=== PATIENT | female | born 1955 | race African-American/Black ===

== ENCOUNTER → 2022-01-13 11:02 | Outpatient (CLI) | payer MEDICARE, SELFPAY ==
--- NOTE | ~2022-01-13 | XR_ITS ---
EXAMINATION: XR shoulder RT min 2V INDICATION: Right shoulder pain TECHNIQUE: Four views of the right shoulder are submitted. COMPARISON: None FINDINGS: Normal alignment. No fracture. There is mild osteoarthritis of the acromioclavicular joint. Soft tissues are unremarkable. IMPRESSION: 1. Mild osteoarthritis. Reviewed, dictated and finalized at location B. IMPRESSION: 1. Mild osteoarthritis.
--- NOTE | ~2022-01-13 | XR_ITS ---
EXAMINATION: XR shoulder LT min 2V INDICATION: Left shoulder pain TECHNIQUE: Four views of the left shoulder are submitted. COMPARISON: None FINDINGS: Normal alignment. No fracture. There is mild osteoarthritis of the glenohumeral and acromio clavicular joints. Soft tissues are unremarkable. IMPRESSION: 1. Mild osteoarthritis. Reviewed, dictated and finalized at location B. IMPRESSION: 1. Mild osteoarthritis.
== END ==
PROVIDERS: PCP Family Medicine; Visit Provider Family Medicine
DX: M19.011 Primary osteoarthritis, right shoulder (principal); M19.012 Primary osteoarthritis, left shoulder
CPT/HCPCS: 73030

== ENCOUNTER 2022-04-20 09:16 | Outpatient (CLI) | payer MEDICARE, SELFPAY ==
--- NOTE | ~2022-04-20 | NM_ITS ---
EXAMINATION: NM bone 3 phase DATE: 04/21/2022 08:55 INDICATION: Mechanical complication of implant of a right total knee arthroplasty. TECHNIQUE: 24 mCi Tc-99m HDP by intravenous route. Scintigrams of the bilateral knees were obtained in angiographic, blood pool, and delayed phases. COMPARISON: CT of the right knee dated 04/20/2022 FINDINGS: Photopenic defect at the right knee consistent with a total knee arthroplasty. No abnormal activity o n either the angiographic or immediate blood pool images to suggest an inflammatory process. Minimal linear delayed uptake underlying the tibial tray of the right knee arthroplasty. Mild delayed uptake along the margins of the femoral component which is also within normal limits. More prominent increas ed delayed uptake at the left knee primarily in the medial compartment likely related to osteoarthrit is. IMPRESSION: 1. Expected pattern of minimal to mild activity on delayed images along the margins of a right total knee arthroplasty which is within normal limits. 2. Increased uptake at the medial compartment of the left knee likely related to osteoarthritis. Reviewed, dictated and finalized at location A. IMPRESSION: 1. Expected pattern of minimal to mild activity on delayed images along the ma rgins of a right total knee arthroplasty which is within normal limits. 2. Increased uptake at the medial compartment of the left knee likely related t o osteoarthritis.
--- NOTE | ~2022-04-20 | CT_ITS ---
EXAMINATION: CT knee RT wo con DATE: 04/20/2022 10:08 INDICATION: Mechanical complication of a right total knee arthroplasty. TECHNIQUE: High resolution computed tomography (CT) of the right knee was performed without intraveno us contrast. Additional sagittal and coronal reconstructions were performed. Automated exposure contr ol and iterative reconstruction technique were employed. The dose-length product was 399.95 mGy-cm. COMPARISON: None FINDINGS: Right total knee arthroplasty without patellar resurfacing which appears well seated in near-anatomic alignment. No periprosthetic lucency to suggest loosening or infection. Dense streak artifact from t he arthroplasty particularly at the femoral component obscures portions of the immediately adjacent b one and soft tissues which includes the articular surface of the patella. Mild osteoarthritis at the proximal tibiofibular articulation. No right knee joint effusion. Musculature of the distal thigh and proximal calf is unremarkable. IMPRESSION: 1. Right total knee arthroplasty without patellar resurfacing which appears well-seated in near-anato jamin alignment. No joint effusion, loosening or other acute osseous abnormality. Reviewed, dictated and finalized at location A. IMPRESSION: 1. Right total knee arthroplasty without patellar resurfacing which appears wel l-seated in near-anatomic alignment. No joint effusion, loosening or other acut e osseous abnormality.
[2022-04-20 14:09] LABS: Hematocrit 45.7 % (37.0-47.0); Hemoglobin 14.3 g/dL (12.0-15.0); Mean Corpuscular HGB Conc 31.3 g/dl (32-36); Mean Corpuscular Hemoglobin 27.8 pg (26-34); Mean Corpuscular Volume 88.7 fl (80-100); Mean Platelet Volume 10.4 fl (7.4-10.4); Platelet Count Result 291 k/mm3 (150-375); Red Blood Count 5.15 M/mm3 (4.2-5.4); Red Cell Distribution Width 14.6 % (11.5-14.5); White Blood Count 10.8 K/mm3 (4.5-10.0)
[2022-04-20 14:43] LABS: CRP 0.7 mg/dL (<1.0)
[2022-04-20 14:55] LABS: Erythrocyte Sedimentation Rate 13 mm/hr (0-20)
== END 2022-04-20 09:17 | disposition home or self-care (01) ==
PROVIDERS: PCP Family Medicine; Visit Provider Orthopaedic Surgery
DX: T85.698A Other mechanical complication of other specified internal prosthetic devices, implants and grafts, initial encounter (principal); T84.039A Mechanical loosening of unspecified internal prosthetic joint, initial encounter
CPT/HCPCS: 36415; 73700; 78315; 85027; 85652; 86140; A9561